=== PATIENT | female | born 1980 | race American Indian/Alaskan Native ===

== ENCOUNTER 2021-05-27 04:32 | Emergency (ER) | payer MEDICARE ==
[2021-05-27 05:21] VITALS: BP 102/73
--- NOTE | 2021-05-27 05:22 | Emergency Department Report ---
ED Female HPI - General Stated complaint: PAINFUL VAGINAL DISCHARGE/ABD PAIN - History of Present Illness Initial comments: Patient is a 41-year-old -[place] female with a history of chronic recurrent bacterial vaginosis presents to the ED with complaint of acute onset persistent suprapubic pressure, urinary frequency and urgency, vaginal discharge with malodorous fishy smell and dysuria for the last 2 days, worse in the last 12 hours. Patient states that the symptoms of given her chronic recurrent bacterial vaginosis she believes that she may be having another flare of bacterial vaginosis infection. Patient denies fever, chills, nausea and vomiting, diarrhea, abdominal pain, vaginal bleeding, cough, sore throat, chest pain or shortness of breath and headache or low back pain. MD Complaint: vaginal discharge, dysuria, other (Urinary frequency and urgency, suprapubic pressure) -: Sudden, days(s) (2) Location: suprapubic, other (Vaginal) Radiation: non-radiating Severity: mild Severity scale (0 -10): 0 Quality: dull Consistency: constant Improves with: none Worsens with: none Are you Now?: No Associated Symptoms: denies other symptoms, vaginal discharge, abdominal pain (Suprapubic), dysuria. denies: vaginal bleeding, nausea/vomiting, fever/chills, headaches, loss of appetite, hematuria, rash, seizure, shortness of breath, syncope, weakness - Related Data Sexually active: Yes Previous Rx's Medication Instructions Recorded Last Taken Type Fluconazole [Diflucan TAB] 200 mg PO QDAY #2 tablet 05/27/21 Unknown Rx Sulfamethoxazole/Trimethoprim 1 each PO Q12H #20 tablet 05/27/21 Unknown Rx [Bactrim DS TAB] metroNIDAZOLE [Flagyl] 500 mg PO Q12HR #14 tab 05/27/21 Unknown Rx Allergies Allergy/AdvReac Type Severity Reaction Status Date / Time No Known Allergies Allergy Unverified 05/27/21 05:29 ED Review of Systems ROS: Stated complaint: PAINFUL VAGINAL DISCHARGE/ABD PAIN Other details as noted in HPI Constitutional: denies: chills, fever Eyes: denies: eye pain, eye discharge, vision change ENT: denies: ear pain, throat pain Respiratory: denies: cough, shortness of breath, wheezing Cardiovascular: denies: chest pain, palpitations Endocrine: no symptoms reported Gastrointestinal: abdominal pain (Suprapubic pressure). denies: nausea, vomiting, diarrhea Genitourinary: urgency, dysuria, frequency, discharge Musculoskeletal: denies: back pain, joint swelling, arthralgia Skin: denies: rash, lesions Neurological: denies: headache, weakness, paresthesias Psychiatric: denies: anxiety, depression Hematological/Lymphatic: denies: easy bleeding, easy bruising ED Past Medical Hx - Medications Home Medications: Home Medications Medication Instructions Recorded Confirmed Last Taken Type Fluconazole [Diflucan TAB] 200 mg PO QDAY #2 tablet 05/27/21 Unknown Rx Sulfamethoxazole/Trimethoprim 1 each PO Q12H #20 tablet 05/27/21 Unknown Rx [Bactrim DS TAB] metroNIDAZOLE [Flagyl] 500 mg PO Q12HR #14 tab 05/27/21 Unknown Rx ED Physical Exam - General General appearance: alert, in no apparent distress - Head Head exam: Present: atraumatic, normocephalic, normal inspection - Eye Eye exam: Present: normal appearance, PERRL, EOMI Pupils: Present: normal accommodation - ENT ENT exam: Present: normal exam, normal orophraynx, mucous membranes moist, TM's normal bilaterally, normal external ear exam - Neck Neck exam: Present: normal inspection, full ROM - Respiratory Respiratory exam: Present: normal lung sounds bilaterally. Absent: respiratory distress, wheezes, rales, rhonchi, chest wall tenderness, accessory muscle use, decreased breath sounds, prolonged expiratory, other - Cardiovascular Cardiovascular Exam: Present: regular rate, normal rhythm, normal heart sounds. Absent: systolic murmur, diastolic murmur, rubs, gallop - GI/Abdominal GI/Abdominal exam: Present: soft, normal bowel sounds. Absent: tenderness, guarding, rebound, hyperactive bowel sounds, hypoactive bowel sounds, organomegaly, mass - Bi-manual exam: Present: other (Pelvic exam deferred, patient prefers her own [facility] physician) - Extremities Exam Extremities exam: Present: normal inspection, full ROM, normal capillary refill - Back Exam Back exam: Present: normal inspection, full ROM. Absent: tenderness, CVA tenderness (R), CVA tenderness (L), muscle spasm, paraspinal tenderness, an tebral tenderness - Neurological Exam Neurological exam: Present: alert, oriented X3, CN II-XII intact, normal gait, reflexes normal - Psychiatric Psychiatric exam: Present: normal affect, normal mood - Skin Skin exam: Present: warm, dry, intact, normal color. Absent: rash ED Course Vital Signs 05/27/21 05/27/21 05:00 05:14 Temperature 98.6 F Pulse Rate 67 Respiratory 20 Rate Blood Pressure 102/73 102/73 O2 Sat by Pulse 100 Oximetry ED Medical Decision Making - Medical Decision Making This is a 41-year-old -[place] female with a history of chronic recurrent bacterial vaginosis presents to the ED with complaint of acute onset persistent suprapubic pressure, urinary frequency and urgency, vaginal discharge with malodorous fishy smell and dysuria for the last 2 days, worse in the last 12 hours. Patient states that the symptoms of given her chronic recurrent bacterial vaginosis she believes that she may be having another flare of bacteri al vaginosis infection. In the ED, patient is alert and oriented x3 and is not in distress. Patient is hemodynamically stable. Urinalysis showed significant urinary tract infection and candidal vaginal yeast infection. Based on the patient's history and physical exam findings, patient will discharge home on antibiotics and antifungal medications. Patient was advised to follow-up with [facility] physician or primary care physician in 7 to 10 days for reevaluation. Patient is advised return to the ED immediately if symptoms get worse. - Differential Diagnosis Bacterial vaginosis; UTI; Cortney vaginitis; STD; Critical care attestation.: If time is entered above; I have spent that time in minutes in the direct care of this critically ill patient, excluding procedure time. ED Disposition Clinical Impression: Bacterial vaginosis, Acute urinary tract infection, Candidal vaginitis Disposition: 01 HOME / SELF CARE / HOMELESS Is pt being admited?: No Does the pt Need Aspirin: No Condition: Stable Instructions: Bacterial Vaginosis (ED), Bacterial Vaginosis, [id number], Urinary Tract Infection, Adult, [id number], Vaginitis, [id number] Additional Instructions: Urinalysis showed significant urinary tract infection as well as vaginal yeast infection. Based on your history and physical exam findings, you are being discharged home on oral antibiotics and medication for yeast. Therefore take medications with food, drink plenty of fluids and follow-up with your [facility] physician or primary care physician in 7 to 10 days for reevaluation. Return to the ED immediately if symptoms get worse. Prescriptions: Sulfamethoxazole/Trimethoprim [Bactrim DS TAB] 1 each PO Q12H #20 tablet Fluconazole [Diflucan TAB] 200 mg PO QDAY #2 tablet metroNIDAZOLE [Flagyl] 500 mg PO Q12HR #14 tab Referrals: PRIMARY CARE, [Primary Care Provider] - 3-5 Days Forms: STI Treatment and Prevention Time of Disposition: 06:23 Print Language: BRAZILIAN
[2021-05-27 06:08] LABS: Bilirubin,Urine NEG (Negative); Blood,Urine NEG (Negative); Color,Urine Yellow (Yellow); Protein,Urine <15 mg/dL mg/dL (Negative); Urobilinogen,Urine < 2.0 mg/dL (<2.0)
[2021-05-27 06:18] LABS: HCG Qualitative,Urine Negative (Negative)
== END 2021-05-27 07:01 | disposition home or self-care (01) ==
LOC: EDBD 04:32 → ED 04:32
DX: N39.0 Urinary tract infection, site not specified (principal); N76.0 Acute vaginitis; B96.89 Other specified bacterial agents as the cause of diseases classified elsewhere; B37.3 Candidiasis of vulva and vagina
CPT/HCPCS: 81001; 81025; 99283